=== PATIENT | female | born 1970 | race American Indian/Alaskan Native ===

== ENCOUNTER 2019-03-26 18:50 | Emergency (ER) | payer OTHER ==
[2019-03-26 19:01] VITALS: BP 145/86
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
== END 2019-03-26 21:43 | disposition home or self-care (01) ==
LOC: ED 18:50
DX: R51 Headache (principal); V43.52XA Car driver injured in collision with other type car in traffic accident, initial encounter; Y93.89 Activity, other specified; Y92.488 Other paved roadways as the place of occurrence of the external cause; Y99.8 Other external cause status
CPT/HCPCS: 99282